=== PATIENT | male | born 1960 | race Caucasian/White ===

== ENCOUNTER 2018-09-29 20:47 | Emergency (ER) | payer MEDICAID ==
[~2018-09-29] VITALS: Ht 170.2 cm; Wt 136.3 kg
[2018-09-29 20:53] VITALS: BP 170/104
[2018-09-29] MEDS ORDERED: TAM75C PO (22:00)
[2018-09-29] MEDS ORDERED: ALBU8HFA PO (22:00)
== END 2018-09-29 22:10 | disposition home or self-care (01) ==
LOC: ER 20:48
DX: J20.9 Acute bronchitis, unspecified (principal); J11.1 Influenza due to unidentified influenza virus with other respiratory manifestations; F12.90 Cannabis use, unspecified, uncomplicated; F17.200 Nicotine dependence, unspecified, uncomplicated; E03.9 Hypothyroidism, unspecified
CPT/HCPCS: 99283